=== PATIENT | male | born 1965 | race Caucasian/White ===

== ENCOUNTER 2019-04-28 | Day surgery (SDC) | payer OTHER ==
[~2019-04-28] MED LIST: ALPRAZOLAM ER1 MG PO; ALPRAZOLAM OR; BENADRYL 25MG C25 MG PO; BREO ELLIPTA 101 INH; CO Q-10200 M1 PO; DOXYCYC MONO100 M2 PO; DOXYCYCL HYC100 MG PO; FLONASE AL50 MCG/AC1; LUNESTA1 MG; MAXEPA1000 M1 PO; MELATONIN PO; MULTIVITAL-M PO; NEXIUM40 M1 PO; PERCOCET 10/31 COMBO PO; PROAIR HFA IN; SAW PALMETTO160 M1 PO; SELENIUM200 MC1 PO; ULTRAM50 M1 PO; VALACYCLOVIR H500 M1; VITAMIN B CO PO; XANAX XR1 MG PO
== END 2019-04-28 08:55 | disposition home or self-care (01) | DRG 951 ==
PROC: 0DJD8ZZ Inspection of Lower Intestinal Tract, Via Natural or Artificial Opening Endoscopic (ICD-10-PCS; principal; 2019-04-28)
DX: Z12.11 Encounter for screening for malignant neoplasm of colon (principal); K64.8 Other hemorrhoids; K64.4 Residual hemorrhoidal skin tags; Z80.0 Family history of malignant neoplasm of digestive organs; Z86.010 Personal history of colon polyps

== ENCOUNTER 2024-04-30 06:36 | Day surgery (SDC) | payer OTHER ==
[~2024-04-30] VITALS: Ht 165.1 cm; Wt 63.5 kg
[~2024-04-30 06:36] MED LIST changes: +AMBIEN5 MG PO; +ASPIRIN ADULT L81 M2 PO; +BUSPAR10 M1 PO; +FISH OIL1000 M1 PO; +LATISSE EX; +LOSARTAN POTASS50 MG PO; +MONTELUKAST SOD10 MG PO; +MULTI VIT PO; +PRAVASTATIN SOD20 MG PO; +PROVENTIL0.083 % IN; +SAW PALMETTO1 CAP PO; +TRAZODONE50 MG PO; +VALACYCLOVIR H500 M1 PO; +XANAX0.25 MG PO
[2024-04-30] MEDS ORDERED: FAMOTIDINE 10MG/ML 2ML SDV IV ONE (06:48)
[2024-04-30] MEDS ORDERED: LACTATED RINGER'S 1,000 ML IV ONE (06:48)
[2024-04-30 08:49] VITALS: BP 93/66
[2024-04-30] MEDS ORDERED: LIDOCAINE HCL 2% 2ML SDV IV ONE (10:32)
[2024-04-30] MEDS ORDERED: PROPOFOL 200 MG/20 ML VIAL IV ONE (10:32)
[2024-04-30] MEDS ORDERED: GLYCOPYRROLATE 0.2 MG/ML IV ONE (10:32)
== END 2024-04-30 08:49 | disposition home or self-care (01) | DRG 951 ==
LOC: ENDO 06:36 → ORM 12:15 → ENDO 12:15
PROVIDERS: ATTEND Surgery
PROC: 0DBN8ZX Excision of Sigmoid Colon, Via Natural or Artificial Opening Endoscopic, Diagnostic (ICD-10-PCS; principal; 2024-04-30)
DX: Z12.11 Encounter for screening for malignant neoplasm of colon (principal); K63.5 Polyp of colon; K64.8 Other hemorrhoids; K64.4 Residual hemorrhoidal skin tags; I10 Essential (primary) hypertension; Z86.0100 Personal history of colon polyps, unspecified
CPT/HCPCS: J1596